=== PATIENT | female | born 1965 | race Caucasian/White ===

== ENCOUNTER → 2023-06-19 | Outpatient (CLI) | payer BC ==
[~2023-06-19] MED LIST: CALTRATE-600 W600 MG PO; CITALOPRAM10 MG PO; LISINOPRIL/HCTZ1 TA2 PO; ONE DAILY1 TA1 PO; SLOW FE160 MG PO; SYNTHROID 0.0.025 MG PO; WELLBUTRIN PO; XANAX1 MG PO; ZANTAC 300300 MG PO
== END ==
LOC: MC.RAD 07:30
DX: Z12.31 Encounter for screening mammogram for malignant neoplasm of breast (principal)